=== PATIENT | female | born 2000 | race Caucasian/White ===

== ENCOUNTER 2024-01-19 19:28 | Emergency (ER) | payer MEDICAID ==
[~2024-01-19] VITALS: Ht 180.3 cm; Wt 63.0 kg
[2024-01-19 19:37] VITALS: BP 109/72; PULSE 84; RESP 16; TEMP 98.4; O2SAT 99
[2024-01-19] MEDS ORDERED: KEN0.1O TP (20:34)
== END 2024-01-19 20:42 | disposition home or self-care (01) ==
LOC: ER 19:29
DX: L30.9 Dermatitis, unspecified (principal)
CPT/HCPCS: 99283

== ENCOUNTER 2024-02-04 03:50 | Emergency (ER) | payer MEDICAID ==
[~2024-02-04] VITALS: Ht 180.3 cm; Wt 60.1 kg
[~2024-02-04 03:50] MED LIST: KEN0.1O TP
[2024-02-04 03:52] VITALS: TEMP 101.1
[2024-02-04] MEDS ORDERED: GUAI120L55 PO (04:28)
[2024-02-04] MEDS ORDERED: ALBU8HFA INH (04:28)
[2024-02-04] MEDS: acetaminophen w/codeine (30MG) #3 tablet PO ONE (04:36)
[2024-02-04] MEDS: acetaminophen 325mg tablet PO ONE (04:36)
[2024-02-04 04:42] VITALS: BP 123/82; PULSE 78; RESP 18; O2SAT 99
== END 2024-02-04 04:44 | disposition home or self-care (01) ==
LOC: ER 03:50
DX: J11.1 Influenza due to unidentified influenza virus with other respiratory manifestations (principal); Z79.899 Other long term (current) drug therapy
CPT/HCPCS: 99283

== ENCOUNTER 2024-02-27 18:12 | Emergency (ER) | payer MEDICAID ==
[~2024-02-27] VITALS: Ht 180.3 cm; Wt 59.5 kg
[~2024-02-27 18:12] MED LIST changes: +ALBU8HFA INH; +GUAI120L55 PO; -KEN0.1O TP
[2024-02-27 18:42] VITALS: TEMP 97.8
[2024-02-27 19:33] LABS: BASOPHILS # (AUTO) 0.1 X10'3 (0-0.2); BASOPHILS % (AUTO) 0.6 % (0-1); EOSINOPHILS # (AUTO) 0.1 X10'3 (0-0.9); EOSINOPHILS % (AUTO) 0.8 % (0-6); HEMATOCRIT 36.3 % (35.0-45.0); HEMOGLOBIN 11.3 g/dl (12.0-16.0); LYMPHOCYTES # (AUTO) 3.2 X10'3 (1.1-4.8); LYMPHOCYTES % (AUTO) 29.3 % (21-51); MEAN CORPUSCULAR HEMOGLOBIN 21.3 PG (27.0-31.0); MEAN CORPUSCULAR HGB CONC 31.2 g/dL (33.0-36.5); MEAN CORPUSCULAR VOLUME 68.4 FL (78-98); MEAN PLATELET VOLUME 8.4 FL (7.4-10.4); MONOCYTES # (AUTO) 1.2 X10'3 (0-0.9); MONOCYTES % (AUTO) 10.6 % (2-12); NEUTROPHILS # (AUTO) 6.5 X10'3 (1.8-7.7); NEUTROPHILS % (AUTO) 58.7 % (42-75); PLATELET COUNT 366 X10'3 (140-440); RED CELL DISTRIBUTION WIDTH 14.6 % (11.5-14.5)
[2024-02-27 19:45] LABS: ALANINE AMINOTRANSFERASE 42 U/L (12-78); ALBUMIN 3.6 G/DL (3.4-5.0); ALKALINE PHOSPHATASE 55 IU/L (46-116); ANION GAP 10 (8-16); ASPARTATE AMINO TRANSFERASE 20 U/L (10-37); BILIRUBIN,TOTAL 0.3 MG/DL (0.1-1.0); BLOOD UREA NITROGEN 13 MG/DL (7-18); BUN/CREATININE RATIO 19.1 (10.0-20.0); CALCIUM 8.3 MG/DL (8.5-10.1); CHLORIDE 105 MMOL/L (99-107); CREATININE 0.68 MG/DL (0.40-0.90); GLUCOSE 91 MG/DL (70-104); LIPASE 31 U/L (16-77); POTASSIUM 3.9 MMOL/L (3.5-5.1); SODIUM 138 MMOL/L (135-145); TOTAL CARBON DIOXIDE 22.8 MMOL/L (24-32); TOTAL PROTEIN 7.2 G/DL (6.4-8.2); eCRCL 122 ML/MIN; eGFR > 90 ML/MIN
[2024-02-27 19:54] LABS: URINE HCG NEGATIVE (NEG)
[2024-02-27 19:58] LABS: BILIRUBIN,URINE NEGATIVE (Neg); CLARITY,URINE CLEAR (Clear); COLOR,URINE YELLOW (Yellow); GLUCOSE, URINE NEGATIVE (Neg); KETONES,URINE NEGATIVE (Neg); LEUKOCYTE ESTERASE ,URINE NEGATIVE (Neg); NITRITES, URINE NEGATIVE (Neg); OCCULT BLOOD,URINE TRACE-INTACT (Neg); PH,URINE 5.5 (4.8-8.0); PROTEIN,URINE NEGATIVE (Neg); UROBILINOGEN,URINE 0.2 E.U/dL (0.2-1.0)
[2024-02-27 20:03] LABS: PLATELET ESTIMATE NORMAL
[2024-02-27 20:04] LABS: ELLIPTOCYTES FEW; MICROCYTOSIS 1+; POIKILOCYTOSIS FEW
[2024-02-27 20:06] LABS: UA COLLECTION TYPE CLN CATCH MIDSTREAM
[2024-02-27 20:20] LABS: BACTERIA,URINE FEW /HPF (Neg)
[2024-02-27 20:21] LABS: MUCUS STRANDS FEW /LPF (Neg); RBC,URINE 0-2 /HPF (0-2); SQUAMOUS EPITHELIAL CELL,UR MODERATE /LPF (FEW); WBC,URINE 0-4 /HPF (0-4)
[2024-02-27] MEDS: ondansetron 4mg rapidly disintigrating tab PO ONE (20:46)
[2024-02-27] MEDS: mag hydrox/Alum hydrox/simeth 30ml oral suspension PO ONE (21:03)
[2024-02-27] MEDS: LIDOcaine 2% Viscous 15ml cup MM ONE (21:04)
[2024-02-27] MEDS ORDERED: ONDA-245 PO (21:37)
[2024-02-27] MEDS ORDERED: FAMO-129 PO (21:38)
[2024-02-27 21:52] VITALS: BP 145/87; PULSE 74; RESP 16; O2SAT 98
== END 2024-02-27 21:55 | disposition home or self-care (01) ==
LOC: ER 18:13
DX: R10.13 Epigastric pain (principal)
CPT/HCPCS: 76700; 80053; 81001; 81025; 83690; 85008; 85025; 99284

== ENCOUNTER 2024-07-17 20:51 | Emergency (ER) | payer MEDICAID ==
[~2024-07-17] VITALS: Ht 180.3 cm; Wt 59.9 kg
[~2024-07-17 20:51] MED LIST changes: -ALBU8HFA INH; +FAMO-129 PO; +ONDA-245 PO
[2024-07-17] MEDS: LIDOcaine 1% 30ml preserv. free vial IJ STA (23:40)
--- NOTE | 2024-07-18 00:39 | Physician Documentation ---
History of Present Illness ~ Chief Complaint: Finger pain Stated Complaint: "ACURLIC STUCK UNDER NAIL AND IT HURTS" Time Seen by MD: 22:59 Primary Medical Doctor: [facility] HPI This is a 24-year-old female who presents with a splinter of acrylic false nail stuck under the nail bed of her left thumb since last night, patient reports she was picking it her other finger that had a acrylic nail on it when a liver shared off into her thumb. Patient reports no other acute symptoms or concerns. Tetanus within 5 years: No Medication Reconciliation Allergies: Coded Allergies: No Known Allergies (Unverified , 02/04/24) Scheduled Famotidine (Pepcid), 1 TAB PO Q12H Ondansetron 8mg ODT (Ondansetron Odt), 1 TAB PO Q6H Scheduled PRN Guaifenesin/Codeine Phosphate (Codeine-Guaifen 10-100 mg/5 ml), 10 ML PO Q6H PRN for cough and congestion Review of Systems ROS Splinter into left thumb as stated above in the HPI, otherwise all systems are reviewed and negative. Physical Exam Vital Signs: Temperature: 98.8, Source: Temporal, Heart Rate: 69, Respiratory Rate: 18, BP: 130/72, Pulse Oximetry: 99, Weight: 59.900 Oxygen Flow Rate: 0 Physical Exam VITALS: Reviewed and as above. GENERAL: Alert, nontoxic appearing, no apparent distress. RESPIRATORY: No increased work of breathing, no respiratory distress, speaking in full clear sentences SKIN: Sliver under medial aspect of left thumb nail Procedures Procedures Informed consent was obtained and a digital block was utilized to anesthetize patient's thumb, patient reported moderate anesthesia though reduced pain to a tolerable level, utilizing an 18 gauge needle I was able to successfully work the splinter out in his single piece without evidence of retained foreign body. Patient tolerated procedure well. Progress Results/Orders Results/Orders Completed Orders - ALBERTO HERNANDEZ Lidocaine 1% 30ml Vial (Xylocaine 1% Via (07/17/24 23:04) Medications Received in ER Medications (Trade) Dose Ordered Sig/Peter Route PRN Reason Start Time Stop Time Status Last Admin Dose Admin (Xylocaine 1% vial) 10 ml ONCE STAT IJ 07/17/24 23:04 07/17/24 23:14 DC 07/17/24 23:40 10 ML Vital Signs 07/17/24 07/18/24 20:55 01:27 Temp 98.8 98.6 Pulse 69 63 Resp 18 16 B/P (MAP) 130/72 128/70 Pulse Ox 99 99 O2 Flow Rate 0 Medical Decision Making Findings This 24-year-old female presented with a splinter of acrylic under her left thumbnail, the thumb was anesthetized with a digital block and the splinter was removed successfully and a single piece without evidence of retained foreign body. Patient provided home care instructions and return to care precautions which she verbalized understanding of. General Diff Dx:Considerations: Include: Hematoma Finger Diff Dx:Considerations: Include: Cellulitis, Fracture, Laceration, Neurovascular injury, Subungual hematoma, Other (Retained foreign body) Departure Time of Disposition: Disposition: HOME / SELF CARE / HOMELESS Impression: Primary Impression: Splinter of finger without major open wound or infection Qualified Codes: S60.459A - Superficial foreign body of unspecified finger, initial encounter Condition: Improved Discharge Instructions: Hand or Foot Foreign Body, Adult Additional Instructions: Please keep the area clean dry and covered, watch for signs of infection such as increasing swelling, pain or redness to the area, if discharge develops from the area, or if you develop a fever, please return to the emergency department or another medical care provider as you may need antibiotics if an infection begins to develop. Please follow up with your primary care provider in the next few days. Please return to the emergency department for any new or worsening concerning symptoms. Referrals: NO PRIMARY CARE PROVIDER (PCP) Education Educated: Patient Educated regarding: diagnosis, treatment, prognosis, need for follow up Signature Scribe Signature: No scribe Attestation: The note accurately reflects work and decisions made by me.ANICETO Hucthins 07/18/24 01:55 ALBERTO HERNANDEZ Jul 18, 2024 00:39
[2024-07-18 01:27] VITALS: BP 128/70; PULSE 63; RESP 16; TEMP 98.6; O2SAT 99
== END 2024-07-18 01:28 | disposition home or self-care (01) ==
LOC: ER 20:51
DX: S60.352A Superficial foreign body of left thumb, initial encounter (principal); X58.XXXA Exposure to other specified factors, initial encounter; Y93.89 Activity, other specified; Y92.89 Other specified places as the place of occurrence of the external cause; Y99.8 Other external cause status
CPT/HCPCS: 99284; J2003